=== PATIENT | male | born 1985 | race American Indian/Alaskan Native ===

== ENCOUNTER 2020-01-18 00:58 | Emergency (ER) | payer OTHER, MEDICAID, SELFPAY ==
[2020-01-18 01:00] VITALS: BP 162/105; PULSE 88; RESP 16; TEMP 37.4; O2SAT 96; BMI 17.8
--- NOTE | 2020-01-18 01:00 | DI.RAD.S_ITS ---
PROCEDURE: XR RIBS LT MIN 3V W CXR1V INDICATIONS: rib pain after injury TECHNIQUE: 2 views of the left ribs were acquired, along with a single view chest. COMPARISON: None. FINDINGS: Surgical changes and devices: None. Bones and chest wall: No fractures or dislocations. No suspicious bony lesions. Overlying soft tissues appear unremarkable. Lungs and pleura: No pleural effusions or pneumothorax. Lungs appear clear. Mediastinum: Mediastinal contours appear normal. Heart size is normal. IMPRESSION: No displaced rib fracture. No acute cardiopulmonary disease process. Dictated by: Beth Lechuga MD, PhD on 01/18/2020 at 8:25 Approved by: Beth Lechuga MD, PhD on 01/18/2020 at 8:38
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
[2020-01-18] MEDS: IBUPROFEN 400 MG TABLET 800 MG PO (01:32)
[2020-01-18] MEDS: CYCLOBENZAPRINE 10 MG PREPACK 1 BOTTLE MISC (02:14)
[2020-01-18 02:21] VITALS: BP 169/94; PULSE 78; RESP 16; O2SAT 98
== END 2020-01-18 02:21 | disposition home or self-care (01) ==
PROVIDERS: Emergency Provider Emergency Medicine
DX: R07.89 Other chest pain (principal); S00.83XA Contusion of other part of head, initial encounter; M54.9 Dorsalgia, unspecified; R07.81 Pleurodynia; W03.XXXA Other fall on same level due to collision with another person, initial encounter
CPT/HCPCS: 71101; 99283; 99284